=== PATIENT | female | born 1980 | race Caucasian/White ===

== ENCOUNTER → 2019-05-21 13:24 | Outpatient (BNVA) | payer MEDICAID, SELFPAY | PROVIDERS: PCP Obstetrics & Gynecology; Visit Provider Obstetrics & Gynecology | DX: Z01.89 Encounter for other specified special examinations (principal) | CPT/HCPCS: 84315 ==

== ENCOUNTER 2019-05-21 16:00 | Outpatient (CLI) | payer MEDICAID, SELFPAY ==
[2019-05-21 16:20] VITALS: BP 121/78; PULSE 141; RESP 16; TEMP 36.8
[2019-05-21 17:07] VITALS: BMI 38.9
[2019-05-21 18:47] VITALS: BP 159/85; PULSE 120; RESP 16; TEMP 36.8
== END 2019-05-21 18:30 | disposition home or self-care (01) ==
LOC: OPOB 16:13 → OBGYN 18:19 → OPOB 05-26 17:34
PROVIDERS: Visit Provider Obstetrics & Gynecology
DX: O26.899 Other specified pregnancy related conditions, unspecified trimester (principal); Z3A.00 Weeks of gestation of pregnancy not specified; R10.9 Unspecified abdominal pain
CPT/HCPCS: 87081; 99211